=== PATIENT | female | born 1960 | race Caucasian/White ===

== ENCOUNTER 2024-11-21 11:29 | Outpatient (CLI) | payer OTHER, SELFPAY | END 2024-11-21 11:30 | disposition home or self-care (01) | LOC: LBO 11:29 | PROVIDERS: PCP Family Medicine; Visit Provider Registered Nurse Maternal Newborn | DX: M54.2 Cervicalgia (principal); E03.9 Hypothyroidism, unspecified | CPT/HCPCS: 36415; 86376 ==